=== PATIENT | female | born 1955 | race Caucasian/White ===

== ENCOUNTER → 2020-09-14 | Outpatient (CLI) | payer MEDICARE, BC ==
[~2020-09-14] MED LIST: AMLODIPINE BESYL5 MG PO; ATORVASTATIN CA40 MG PO; CELEXA40 MG PO; ECOTRIN81 MG PO; FLEXERIL 10 MG10 MG PO; MOBIC15 MG PO; OMEPRAZOLE20 M1 PO; REGLAN10 MG PO; TOPROL XL25 MG PO; TRICOR145 MG PO; VIMPAT100 MG PO; ZOLMITRIPTAN5 MG PO
== END ==
LOC: KOH-I 11:52
DX: R05 Cough (principal)
CPT/HCPCS: 71046

== ENCOUNTER → 2021-04-06 | Outpatient (CLI) | payer MEDICARE, BC | LOC: ECHO 08:47 | DX: R01.1 Cardiac murmur, unspecified (principal); I08.1 Rheumatic disorders of both mitral and tricuspid valves | CPT/HCPCS: ECHO; 93306 ==

== ENCOUNTER 2021-10-11 11:02 | Emergency (ER) | payer MEDICARE, BC ==
[2021-10-11] MEDS ORDERED: IMITREX50 MG PO (12:58)
[2021-10-11] MEDS ORDERED: ONDANSETRON ODT4 MG SL (12:58)
== END 2021-10-11 13:05 | disposition home or self-care (01) ==
LOC: ER1 11:02
DX: G43.909 Migraine, unspecified, not intractable, without status migrainosus (principal); E11.9 Type 2 diabetes mellitus without complications; I10 Essential (primary) hypertension
CPT/HCPCS: 96374; 96375; 99283; J1200; J1885; J2765; J7030